=== PATIENT | female | born 1970 | race Caucasian/White ===

== ENCOUNTER → 2019-09-10 | Outpatient (CLI) | payer OTHER | LOC: LAB 07:50 | PROVIDERS: ATTEND Anesthesiology | DX: Z01.812 Encounter for preprocedural laboratory examination (principal); Z11.59 Encounter for screening for other viral diseases ==

== ENCOUNTER → 2020-01-07 | Outpatient (CLI) | payer OTHER | LOC: EDBD 16:33 → RAD 16:33 | PROVIDERS: ATTEND Nurse Practitioner | DX: M41.87 Other forms of scoliosis, lumbosacral region (principal) ==